=== PATIENT | female | born 1970 | race Caucasian/White ===

== ENCOUNTER 2023-04-15 03:51 | Emergency (ER) | payer OTHER, SELFPAY ==
[2023-04-15 04:03] VITALS: BP 144/87; PULSE 66; RESP 18; TEMP 36.6; O2SAT 99; BMI 34.9
--- NOTE | 2023-04-15 04:26 | ED.GENADULT ---
HPI - General Adult General Chief complaint: Ear/Nose/Throat Problem Stated complaint: ear ache and sore throat Time Seen by Provider: 04/15/23 04:07 Source: patient Mode of arrival: ambulatory Limitations: no limitations History of Present Illness HPI narrative: 52-year-old female presents to the emergency department with a 2-3 day history of constant achy left-sided sore throat radiating into the left ear, worsening. 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 She reports that she was thinking getting checked out at her hospital but the waiting list was too long, so she drove down to our ED on her way home. There is no difficulty breathing. She can swallow even though it does hurt to do so. No swelling of the lips or tongue. 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 No GI symptoms, no fever. Denies any drainage from the ears. Reports that Tylenol and ibuprofen are not helping. She did specifically request Decadron. 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 She is status post tonsillectomy, remote. Past medical history she states is benign, no major long-term health problems. Her only long-term medication is Lunesta which she uses to help sleep. Status post prior tonsillectomy as noted above. No other long-term medications. 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 Related Data Home Medications Medication Instructions Recorded Confirmed eszopiclone 3 mg tablet (Lunesta) 3 mg PO QHS 04/15/23 04/15/23 Allergies Allergy/AdvReac Type Severity Reaction Status Date / Time No Known Drug Allergies Allergy Verified 04/15/23 04:06 [facility] Social History Smoking Status: Never smoker Do you use any of these nicotine containing products: None How often do you have six or more drinks on one occasion: Never AUDIT-C Alcohol total score: 0 Non-prescribed substance use: denies use Exam Const: Vital Signs, click to edit/add: Vital Signs - 24 hr 04/15/23 04:03 Temperature 98 F Pulse Rate [Pulse Oximeter] 66 Respiratory Rate 18 Blood Pressure [Ri t Upper Arm] 144/87 H Pulse Oximetry 99 Oxygen Delivery Me thod Room Air Documenting provider has reviewed patient's vital signs: yes Common normals: no apparent distress General appearance: cooperative, comfortable and well kempt Other: I observed her walking into the exam room, no difficulties noted. HENMT: Common normals: normocephalic, head/scalp atraumatic, TM's normal bilaterally and moist oral mucous membranes Head and scalp: normocephalic and atraumatic Tympanic membrane: TM's normal bilaterally Other: Oropharynx shows no swelling. Normal tonsillar pillars. Tonsils are either atrophic or surgically absent. There is absolutely no swelling. Tongue and you come mucosa appear normal. No blisters. No aphthous ulcers. Good dentition. Eye: Common normals: conjunctivae normal General eye: normal appearance of both eyes Conjunctiva: conjunctiva(e) normal Neck & C-Spine: Common normals: full ROM Other: There is mild bilateral anterior cervical and submandibular lymphadenopathy but no other soft tissue swelling. She turns her head freely without difficulty. There are no meningeal signs Resp: Common normals: normal respiratory effort, no use of accessory muscles and clear to auscultation bilaterally Effort & inspection: able to speak in complete sentences Auscultation: clear to auscultation bilaterally Cardio: Common normals: regular rate, regular rhythm, S1 normal heart sound and no murmurs Rate: regular rate Rhythm: regular rhythm Heart sounds: S1 normal Psych: Common normals: speech normal Appearance: well kempt Attitude: engaged Activity/motor behavior: appropriate eye contact Speech: normal speech Insight: insight good Judgement: judgment good Skin: Common normals: no rashes or lesions noted General skin exam: no rashes or lesions noted Course Course Hospital Course: Patient request Decadron, I do not think that this is appropriate. Instead I offer Toradol which she does accept but seems disappointed. Awaiting test swabs for COVID, influenza, strep. Reevaluation(s) Time of Reevaluation #1: 05:17 Reevaluation #1: Patient did not have improvement on the Toradol. She would like to try the dexamethasone. I counseled her extensively on the risks and benefits of this medication how even though some patients benefit greatly from the medication for sore throat, the risk often outweighs the benefit. We discuss typical side effects like irritability, insomnia and more dangerous 1 such as psychosis and avascular necrosis of the femoral head among others. She verbalizes understanding and would like to proceed with the medication. 10 mg of p.o. dexamethasone will be given. All alarm symptoms reviewed and discussed. Swabs are all negative. She will be discharged to follow up as needed if not improving within 2 weeks. Vital Signs Vital signs: Initial Vital Signs Temperature 98 F 04/15/23 04:03 Temperature Source Temporal Artery Scan 04/15/23 04:03 Pulse Rate 66 04/15/23 04:03 Respiratory Rate 18 04/15/23 04:03 Blood Pressure 144/87 H 04/15/23 04:03 Blood Pressure Mean 106 H 04/15/23 04:03 Blood Pressure Position Sitting 04/15/23 04:03 Pulse Oximetry 99 04/15/23 04:03 Oxygen Delivery Method Room Air 04/15/23 04:03 Vital Signs Temperature 98 F 04/15/23 04:03 Pulse Rate 66 04/15/23 04:03 Respiratory Rate 18 04/15/23 04:03 Blood Pressure 144/87 H 04/15/23 04:03 Pulse Oximetry 99 04/15/23 04:03 Oxygen Delivery Method Room Air 04/15/23 04:03 Temperature 98 F 04/15/23 04:03 Pulse Rate 66 04/15/23 04:03 Respiratory Rate 18 04/15/23 04:03 Blood Pressure 144/87 H 04/15/23 04:03 Pulse Oximetry 99 04/15/23 04:03 Oxygen Delivery Method Room Air 04/15/23 04:03 Medical Decision Making Lab Data Labs: Lab Results 04/15/23 Range/Units 04:11 SARS-CoV-2 (PCR) Negative SARS-CoV-2 (Negative) Influenza Type A (PCR) Negative PCR FLU A (Negative) Influenza Type B (PCR) Negative PCR FLU B (Negative) RSV (PCR) Negative PCR RSV (Negative) Group A Strep DNA NOT DETECTED (Not Detectd) Discharge Plan Discharge Clinical Impression: Acute viral pharyngitis Patient Disposition: Home, Self-Care Condition: Stable Instructions: Pharyngitis (ED) Additional Instructions: As we discussed, the ear shows no signs of significant bacterial infection. It is not uncommon to have ear pain referred from the throat and eustachian tube in adults. It is actually more common than true ear infections. The swabs for strep, COVID, influenza and RSV are all negative. This is what I expected. Most of the viral causes for sore throats going around right now are not detected by these swabs. The sore throat may last up to 3 weeks. Remember to come back to the emergency department if you are unable to hold down any liquids for 24 hours, have severe weakness or any difficulty breathing. We discussed the risks and benefits of steroids. You verbalized good understanding of this and have been given 10 mg of dexamethasone. This does help about 25% of people have marked improvement in their symptoms within 24 hours. Activity Level: No Restrictions Discharge Diet: Regular Prescriptions: No Action eszopiclone [Lunesta] 3 mg tablet 3 mg PO QHS Stand Alone Forms: [employer] Info Instructions
[2023-04-15] MEDS: KETOROLAC 10 MG TABLET PO (04:27)
[2023-04-15 04:44] LABS: Strep A DNA Probe* NOT DETECTED (Not Detectd)
[2023-04-15 04:54] LABS: PCR FLU A Negative PCR FLU A (Negative); PCR FLU B Negative PCR FLU B (Negative); PCR RSV Negative PCR RSV (Negative)
[2023-04-15 05:08] LABS: SARS PCR* Negative SARS-CoV-2 (Negative)
== END 2023-04-15 05:31 | disposition home or self-care (01) ==
PROVIDERS: Emergency Provider Family Medicine
DX: J02.9 Acute pharyngitis, unspecified (principal)
CPT/HCPCS: 87631; 87651; 99283; A9270